=== PATIENT | female | born 1955 | race Caucasian/White ===

== ENCOUNTER → 2020-08-11 | Outpatient (CLI) | payer OTHER ==
[~2020-08-11] MED LIST: ALL DAY ALLERGY10 M2 PO; ALPRAZOLAM ER1 MG PO; ASPIRIN CHEWABL81 MG PO; BUMETANIDE1 MG PO; CETIRIZINE HCL10 MG PO; CYMBALTA60 MG PO; DIGOX125 MCG PO; ELIQUIS 5 MG TAB5 MG PO; HYDROCODON-ACE1 EAC2 PO; IPRAT-ALBUT 0.5-3 ML INH; K-DUR TAB 10 M10 MEQ PO; K-DUR TAB 20 M20 MEQ PO; LASIX20 MG PO; LIPITOR TAB 1010 MG PO; LOPRESSOR 25 MG25 MG PO; METOPROLOL SUCC25 MG PO; NORCO 7.5-3251 EACH PO; OLANZAPINE15 MG PO; OMEPRAZOLE20 M2 PO; OMEPRAZOLE20 MG PO; PROVENTIL HFA6.7 GM INH; SPIRIVA HANDIH18 MCG INH; SYMBICORT 16010.2 GM INH; SYMBICORT 80-41 INHA INH; VASOTEC2.5 MG PO; ZYPREXA15 MG PO
== END ==
LOC: HEART CORB 07-28 13:00
DX: I08.3 Combined rheumatic disorders of mitral, aortic and tricuspid valves (principal); I50.42 Chronic combined systolic (congestive) and diastolic (congestive) heart failure; Z95.2 Presence of prosthetic heart valve